=== PATIENT | female | born 1975 | race Hispanic/Latino ===

== ENCOUNTER → 2021-08-08 | Day surgery (SDC) | payer BC ==
[~2021-08-08] MED LIST: OMEPRAZOLE40 MG PO
[2021-08-08 16:05] VITALS: BP 132/88
== END | disposition home or self-care (01) ==
LOC: OR 11:36
PROVIDERS: ATTEND Internal Medicine Gastroenterology
DX: K29.60 Other gastritis without bleeding (principal); K29.50 Unspecified chronic gastritis without bleeding; K29.80 Duodenitis without bleeding; K20.90 Esophagitis, unspecified without bleeding; K21.9 Gastro-esophageal reflux disease without esophagitis; E73.9 Lactose intolerance, unspecified; K59.09 Other constipation; Z01.812 Encounter for preprocedural laboratory examination; Z20.822 Contact with and (suspected) exposure to COVID-19; Z68.26 Body mass index [BMI] 26.0-26.9, adult
CPT/HCPCS: 43239; 81025; C9113; U0002